=== PATIENT | male | born 1985 | race Caucasian/White ===

== ENCOUNTER 2020-06-07 20:45 | Emergency (ER) | payer OTHER ==
[~2020-06-07] VITALS: Ht 182.9 cm; Wt 92.5 kg
[~2020-06-07 20:45] MED LIST: NAPR550 PO; RXHYDACE PO; RXNAPNA550 PO
[2020-06-07] MEDS ORDERED: Robaxin750 MG PO (21:59)
== END 2020-06-08 | disposition home or self-care (01) ==
LOC: ER 20:45
DX: S16.1XXA Strain of muscle, fascia and tendon at neck level, initial encounter (principal); S29.012A Strain of muscle and tendon of back wall of thorax, initial encounter; Z88.5 Allergy status to narcotic agent; Z79.899 Other long term (current) drug therapy; X50.1XXA Overexertion from prolonged static or awkward postures, initial encounter; Y93.89 Activity, other specified
CPT/HCPCS: 72125; 72128; 99283-25; A9270

== ENCOUNTER 2022-10-30 14:29 | Emergency (ER) | payer OTHER ==
[~2022-10-30] VITALS: Ht 177.8 cm; Wt 92.5 kg
[~2022-10-30 14:29] MED LIST changes: +Robaxin750 MG PO
== END 2022-10-30 18:01 | disposition home or self-care (01) ==
LOC: ER 14:29
DX: M54.2 Cervicalgia (principal); Z88.5 Allergy status to narcotic agent; Z79.899 Other long term (current) drug therapy
CPT/HCPCS: 99283; A9270

== ENCOUNTER 2024-06-28 10:29 | Emergency (ER) | payer OTHER ==
[~2024-06-28] VITALS: Ht 177.8 cm; Wt 77.1 kg
[2024-06-28 11:03] VITALS: BP 143/98
[2024-06-28] MEDS ORDERED: Percocet 5-3251 EACH PO (11:07)
== END 2024-06-28 12:10 | disposition home or self-care (01) ==
LOC: ER 10:29
DX: Z76.0 Encounter for issue of repeat prescription (principal); Z88.5 Allergy status to narcotic agent; Z79.891 Long term (current) use of opiate analgesic
CPT/HCPCS: 99281

== ENCOUNTER 2025-03-30 05:46 | Day surgery (SDC) | payer OTHER ==
[~2025-03-30] VITALS: Ht 175.3 cm; Wt 89.4 kg
[2025-03-30] VITALS (8 sets, daily range): BP systolic 117–146; BP diastolic 66–92
[~2025-03-30 05:46] MED LIST changes: +ALLEGRA ALLERGY60 MG PO; +ARTHRITIS PAIN150 GM TOP; +Cyclobenzaprine5 MG PO; +DOCU100 PO; +Flonase 0.05% N16 GM; +GABA300 PO; +MELO7.5 PO; +NALOXONE HCL4 MG; +ONDA4 PO; +Percocet 5-3251 EACH PO; +ZOLM2.5 PO
[2025-03-30] MEDS ORDERED: CeFAZolin Sodium 2,000 MG in NS 100 ML IV SCH (06:15)
[2025-03-30] MEDS ORDERED: Ampicillin Sod/Sulbactam Sod 3 GM in NS 100 ML IV SCH (06:35)
--- NOTE | 2025-03-30 06:54 | NUR ---
History, Chart, Medications and Allergies reviewed before start of procedure. Ambulatory in Day Surgery. Patient confirms NPO status and agrees with scheduled surgery. Patient States Post-Procedure ride home has been arranged.
[2025-03-30] MEDS ORDERED: FentaNYL Citrate 50 MCG/ML 2 ML Injection ONE ×2 (07:02→08:04)
[2025-03-30] MEDS ORDERED: Midazolam HCl 1MG / ML 2ML Vial ONE (07:03)
[2025-03-30] MEDS ORDERED: Rocuronium Bromide 10 MG/ML 5ML Injection IV ONE (07:08)
[2025-03-30] MEDS ORDERED: Bupivacaine 0.5% W/EPI 1:200000 SDV 30 ML Vial ONE (07:21)
[2025-03-30] MEDS ORDERED: Ketorolac Tromethamine 30mg Vial ONE (08:32)
[2025-03-30] MEDS ORDERED: Ondansetron HCl 2 MG / ML 2ML Vial ONE (08:32)
[2025-03-30] MEDS ORDERED: Dexamethasone Sod Phos 10 MG/ML 1ML VIAL ONE (08:32)
[2025-03-30] MEDS ORDERED: Sugammadex Sodium 200 MG/2ML SDV (100 MG/ML) ONE (08:33)
[2025-03-30] MEDS ORDERED: FentaNYL Citrate 50 MCG/ML 2 ML Injection IV PRN ×3 (08:35)
[2025-03-30] MEDS ORDERED: Ondansetron HCl 2 MG / ML 2ML Vial IV PRN (08:35)
[2025-03-30] MEDS ORDERED: OxyCODONE 5 mg/Acetamin 325 mg TABLET PO PRN (09:55)
--- NOTE | 2025-03-30 10:39 | NUR ---
1000: REPORT RECEIVED FROM VITO PAYNE. VSS. PT ON RA. PT A&OX4. PT ABLE TO REPOSITION SELF IN BED. PT REQUESTING PO FLUIDS AND TOLERATING THEM WELL. PT HAS PRINEO DRSG TO BUTTOCKS AND CHG TEGADERM & MEDIPORE TAPE TO JEAN-CLAUDE DRAIN DRSG ON BUTTOCKS, ALL ARE CDI. JEAN-CLAUDE DRAIN TO SUCTION AND DRAINING APPROPRIATELY, WITH SEROSANGUINEOUS DRAINAGE NOTED. PT REPORTS BURNING TO HIS BUTTOCKS. PT DENIES NAUSEA OR OTHER DISCOMFORT. PT FAMILY AT BEDSIDE.
--- NOTE | 2025-03-30 10:46 | NUR ---
1030: Patient up to Ambulate independently. Gait steady. VSS AND CONSISTENT WITH PT BASELINE. PT VERBALIZES READINESS TO GO HOME. Discharge instructions reviewed with patient and his spouse. Patient verbalizes understanding. Copy given to patient to take home. Dressing to procedure site clean, dry, intact with no visible drainage, swelling, erythema or bruising noted. Patient States Post-Procedure ride home has been arranged. Discharged via wheelchair to private car for ride home. PT BELONGINGS RETURNED TO PT.
== END 2025-03-30 10:35 | disposition home or self-care (01) ==
LOC: ORSCMMR 05:46 → ORD 07:30 → ORSCMMR 10:35
PROVIDERS: Surgery
PROC: 0HX8XZZ Transfer Buttock Skin, External Approach (ICD-10-PCS; principal; 2025-03-30 07:30)
DX: L05.01 Pilonidal cyst with abscess (principal); F32.A Depression, unspecified; F43.10 Post-traumatic stress disorder, unspecified; Z79.899 Other long term (current) drug therapy
CPT/HCPCS: 88304; A9270; J0295; J1100; J1885; J2250; J2405; J2704; J3010; J7120

== ENCOUNTER 2025-04-10 09:58 | Emergency (ER) | payer OTHER ==
[~2025-04-10] VITALS: Ht 177.8 cm; Wt 88.5 kg
[2025-04-10] MEDS ORDERED: FentaNYL Citrate 50 MCG/ML 2 ML Injection IV ONE (10:40)
[2025-04-10] MEDS ORDERED: Ondansetron HCl 2 MG / ML 2ML Vial IV ONE (10:40)
[2025-04-10] MEDS ORDERED: NS 1,000 ML IV SCH (10:40)
[2025-04-10 11:10] LABS: BASOPHILS ABSOLUTE AUTO 0.06 K/mm3 (0.00-0.23); BASOPHILS PERCENT AUTO 1 % (0-2); EOSINOPHILS ABSOLUTE AUTO 0.09 K/mm3 (0.00-0.68); EOSINOPHILS PERCENT AUTO 1 % (0-6); Hematocrit 39.7 % (37.0-53.0); Hemoglobin 14.3 g/dL (13.5-17.5); IMMATURE GRAN ABSOLUTE AUTO 0.05 K/mm3 (0.00-0.10); IMMATURE GRAN PERCENT AUTO 0 % (0-1); LYMPHOCYTES ABSOLUTE AUTO 2.05 K/mm3 (0.84-5.20); LYMPHOCYTES PERCENT AUTO 18 % (21-46); MONOCYTES ABSOLUTE AUTO 0.93 K/mm3 (0.16-1.47); MONOCYTES PERCENT AUTO 8 % (4-13); Mean Corpuscular HGB Conc 36.0 g/dL (31.5-36.5); Mean Corpuscular Volume 85 fL (80-100); NEUTROPHILS ABSOLUTE AUTO 8.00 K/mm3 (1.96-9.15); NEUTROPHILS PERCENT AUTO 72 % (41-73); NRBC ABSOLUTE 0.00 K/mm3 (0.00-0.02); NRBC Auto 0.0 /100 WBC (0.0-0.2); Platelet Count 224 K/mm3 (150-400); RDW Coefficient Variation 12.5 % (11.7-14.2); RDW Standard Deviation 38.1 fL (35.1-46.3)
[2025-04-10 11:41] LABS: Alanine Aminotransfer (ALT/SGP 32.0 U/L (12-78); Albumin, Blood 3.7 g/dL (3.4-5.0); Albumin/Globulin Ratio 0.8 (0.8-1.8); Anion Gap 7.0 mmol/L (3-11); Aspartate Aminotrans (AST/SGOT 17.0 U/L (12-37); Bilirubin, Total 1.6 mg/dL (0.1-1.0); Blood Urea Nitrogen 6.0 mg/dL (8-24); CO2, Blood 30.0 mmol/L (21-32); Calcium, Blood 8.9 mg/dL (8.5-10.1); Chloride, Blood 101.0 mmol/L (98-108); Creatinine, Blood 0.92 mg/dL (0.60-1.20); Globulin, Blood 4.6 g/dL (2.2-4.0); Glucose, Blood 112.0 mg/dL (70-99); Potassium, Blood 3.6 mmol/L (3.5-5.5); Sodium, Blood 134.0 mmol/L (136-145); Total Protein, Blood 8.3 g/dL (6.4-8.2)
[2025-04-10] MEDS ORDERED: DOXYCYCLINE HY100 M1 PO (13:17)
[2025-04-10] MEDS ORDERED: CEPH500 PO (13:17)
[2025-04-10 13:19] VITALS: BP 163/84
[2025-04-10] MEDS ORDERED: OXAYDO5 M1 PO ×2 (13:35→13:36)
== END 2025-04-10 13:40 | disposition home or self-care (01) ==
LOC: ER 09:58
PROVIDERS: Student in an Organized Health Care Education/Training Program
DX: L03.317 Cellulitis of buttock (principal); G43.909 Migraine, unspecified, not intractable, without status migrainosus; Z79.899 Other long term (current) drug therapy; Z79.51 Long term (current) use of inhaled steroids; Z88.5 Allergy status to narcotic agent; Z88.8 Allergy status to other drugs, medicaments and biological substances
CPT/HCPCS: 36415; 74177; 80053; 83605; 85025; 96361; 96374-59; 96375; 99284-25; A9270; J2405; J3010; J3373; J7030; J7040; J7050; Q9967